=== PATIENT | male | born 1995 | race Caucasian/White ===

== ENCOUNTER 2021-03-02 10:57 | Emergency (ER) | payer OTHER ==
[~2021-03-02] VITALS: Ht 180.3 cm; Wt 96.2 kg
[2021-03-02 11:03] VITALS: BP 156/101
[2021-03-02] MEDS ORDERED: LORazepam 2 MG/ML VIAL IM ONE (11:40)
[2021-03-02 12:18] VITALS: BP 140/98
== END 2021-03-02 12:19 | disposition home or self-care (01) ==
LOC: MED 10:57
DX: T40.5X1A Poisoning by cocaine, accidental (unintentional), initial encounter (principal); R06.00 Dyspnea, unspecified; R07.9 Chest pain, unspecified; F12.10 Cannabis abuse, uncomplicated; Y92.89 Other specified places as the place of occurrence of the external cause
CPT/HCPCS: 71045; 93005; 96372; 99283; J2060